=== PATIENT | male | born 1980 ===

== ENCOUNTER 2017-06-13 11:54 | Emergency (ER) | payer OTHER ==
[2017-06-13 12:12] VITALS: BMI 31.6
[2017-06-13 12:16] VITALS: BP 136/80; PULSE 75; RESP 20; TEMP 97.6; O2SAT 99
--- NOTE | 2017-06-13 12:49 | ED PDOC ---
Lower Extremity Pain/Injury Time Seen by Provider: 06/13/17 12:32 Chief Complaint (Nursing): Lower Extremity Problem/Injury Chief Complaint (Provider): Lower Extremity Problem/Injury History Per: Patient History/Exam Limitations: no limitations Onset/Duration Of Symptoms: Days (1 year ago), Persistent Current Symptoms Are (Timing): Still Present Additional Complaint(s): 36 year old male presents to the ED complaining of persistent intermittent right knee pain since 1 year ago after an injury due to playing soccer. 5 months ago he saw an orthopedic doctor at [facility]. X-rays were preformed and read as normal. The patient reports going to physical therapy for 5 weeks for the injury and he finished about 2 months ago. He states he continues to have pain in his knee especially when walking. Otherwise: (-) recent trauma, (- ) injury, (-) fever, (-) chills and (-) decreased ROM. PMD: Dr. Bethany Celis Past Medical History Reviewed: Historical Data, Nursing Documentation, Vital Signs Vital Signs: Last Vital Signs Temp 97.6 F 06/13/17 12:11 Pulse 75 06/13/17 12:11 Resp 20 06/13/17 12:11 BP 136/80 06/13/17 12:11 Pulse Ox 99 06/13/17 12:11 - Medical History PMH: No Chronic Diseases - Surgical History Surgical History: No Surg Hx - Family History Family History: States: Unknown Family Hx - Home Medications Home Medications: Ambulatory Orders Medication Instructions Recorded Naproxen 500 mg PO BID #30 tab 06/13/17 - Allergies Allergies/Adverse Reactions: Allergies Allergy/AdvReac Type Severity Reaction Status Date / Time No Known Allergies Allergy Verified 06/13/17 12:11 Review of Systems ROS Statement: Except As Marked, All Systems Reviewed And Found Negative Musculoskeletal: Positive for: Leg Pain (right knee pain) Physical Exam - Reviewed Nursing Documentation Reviewed: Yes Vital Signs Reviewed: Yes - Physical Exam Comments: GENERAL APPEARANCE: Patient is awake, alert, oriented x 3, in no acute distress. He ambulated upon arrival to the ED. SKIN: Warm, dry; (-) cyanosis. RIGHT KNEE: (-) Tenderness, (+) mild knee effusion, (-) decreased ROM, (+) distal pulses. NEURO AND PSYCH: Mental status as above. - ECG O2 Sat by Pulse Oximetry: 99 (RA) Pulse Ox Interpretation: Normal Medical Decision Making Medical Decision Making: Time: 12:32 --Patient was encouraged to ice and elevated. Antonio wrap was applied. Advised to follow up with orthopedic referral and to consider outpatient MRI. Advised to follow up with orthopedic physician in 1-2 days without fail. Advised to take medication as prescribed. Return to the emergency room at any time for any new or worsening symptoms. Patient states he fully agrees with and understands discharge instructions. States that he agrees with the plan and disposition. Verbalized and repeated discharge instructions and plan. I have given the patient opportunity to ask any additional questions. Scribe Attestation: Documented by Mona Paniagua acting as a scribe for Suzanna Bob PA-C MD Scribe Attestation: All medical record entries made by the Scribe were at my direction and personally dictated by me. I have reviewed the chart and agree that the record accurately reflects my personal performance of the history, physical exam, medical decision making, and the department course for this patient. I have also personally directed, reviewed, and agree with the discharge instructions and disposition. Disposition - Clinical Impression Clinical Impression: Knee pain - Patient ED Disposition Is Patient to be Admitted: No Counseled Patient/Family Regarding: Studies Performed, Diagnosis, Need For Followup, Rx Given - Disposition Referrals: [facility] [Outside] [facility] [place] [Outside] Disposition: Routine/Home Disposition Time: 12:45 Condition: STABLE Additional Instructions: Thank you for letting us take care of you today. You were treated for chronic right knee pain. The emergency medical care you received today was directed at your acute symptoms. If you were prescribed any medication, please fill it and take as directed. It may take several days for your symptoms to resolve. Return to the Emergency Department if your symptoms worsen, do not improve, or if you have any other problems. Please contact your ortho doctor in 2 days for re-evaluation and follow up / or call one of the physicians/clinics you have been referred to that are listed on the Patient Visit Information form that is included in your discharge packet. Bring any paperwork you were given at discharge with you along with any medications you are taking to your follow up visit. Our treatment cannot replace ongoing medical care by a primary care provider (PCP) outside of the emergency department. Thank you for allowing the [facility] team to be part of your care today. 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
== END 2017-06-13 13:10 | disposition home or self-care (01) ==
LOC: H.ER 11:54
DX: M25.561 Pain in right knee (principal)

== ENCOUNTER 2018-06-23 06:29 | Day surgery (SDC) | payer SELFPAY ==
[2018-06-22 10:55] VITALS: BMI 30.9
[2018-06-23] MEDS ORDERED: Propofol 10 mg/ml Inj (20 ML) ONE (07:18)
[2018-06-23] MEDS ORDERED: Midazolam 2 MG/2 ML VIAL ONE (07:19)
[2018-06-23] MEDS ORDERED: Phenylephrine 10 mg/ml Inj ONE (07:24)
[2018-06-23] MEDS ORDERED: Lactated Ringer's 1,000 ML IV ONE (07:25)
[2018-06-23] MEDS ORDERED: EPINEPHrine 1 mg/ml (1:1000) Inj ONE (07:31)
[2018-06-23] MEDS ORDERED: Lidocaine 1% w Epi 1:100,000 Inj ONE (07:31)
[2018-06-23] MEDS ORDERED: Bupivacaine 0.5% Inj(30mL) ONE (07:31)
[2018-06-23] MEDS ORDERED: MethylPREDNISolone Depo 40 mg/ml Inj ONE (07:31)
[2018-06-23] MEDS ORDERED: Bacitracin Ointment 30 GM TUBE ONE (07:31)
[2018-06-23 07:58] LABS: BASO % 0.5 % (0.0-2.0); EOS # 0.1 K/uL (0.0-0.7); EOS % 1.4 % (0.0-4.0); HEMOGLOBIN 14.9 g/dL (12.0-18.0); LYMPH # 2.3 K/uL (1.0-4.3); LYMPH % 31.3 % (20.0-40.0); MEAN CORPUSCULAR HGB CONC 34.1 g/dL (33.0-37.0); MEAN PLATELET VOLUME 9.1 fl (7.2-11.7); MONO # 0.6 K/uL (0.0-0.8); MONO % 7.7 % (0.0-10.0); NEUT # 4.3 K/uL (1.8-7.0); NEUT % 59.1 % (50.0-75.0); NRBC % 0.2 % (0.0-0.0); RBC 4.8 Mil/uL (4.40-5.90); RED CELL DISTRIBUTION WIDTH 13.1 % (11.5-14.5); WHITE BLOOD COUNT 7.3 K/uL (4.8-10.8)
[2018-06-23] MEDS ORDERED: Dexamethasone 4 mg/1 ml ONE (08:16)
--- NOTE | 2018-06-23 09:04 | PCM.SURG1 ---
Surgeon's Initial Post Op Note - Surgeon's Notes Surgeon: Mayra Oglesby MD President & Ceo: Mendy Pete PA-C; Choco Weber DPM Pre-Operative Diagnosis: Right knee meniscus tear, effusion Operative Findings: see op report Post-Operative Diagnosis: same as pre-op dx Operation Performed: Rt knee arthroscopy, partial medial and lateral meniscectomy, synovectomy, chondroplasty Specimen/Specimens Removed: none Estimated Blood Loss: EBL {In ML}: 3 Date of Surgery/Procedure: 06/23/18 Time of Surgery/Procedure: 08:15
[2018-06-23] MEDS ORDERED: Oxycodone/Acetaminophen 5/325 mg Tab PO PRN (09:05)
[2018-06-23] MEDS ORDERED: Dexamethasone 4 mg/1 ml IVP PRN (09:11)
[2018-06-23] MEDS ORDERED: Lactated Ringer's 1,000 ML IV SCH (09:15)
[2018-06-23] MEDS: HYDROmorphone 0.5 mg/0.5 ml ISec IVP PRN ×2 (09:20→10:15)
[2018-06-23] MEDS ORDERED: Oxycodone/Acetaminophen 5/325 mg Tab PO ONE (15:15)
[2018-06-23 16:13] VITALS: RESP 18
[2018-06-23 16:16] VITALS: PULSE 95
[2018-06-23 16:18] VITALS: BP 123/78; TEMP 98.7; O2SAT 97
--- NOTE | 2018-06-23 19:57 | OP ---
PROCEDURE DATE: 06/23/2018 ATTENDING PHYSICIAN: Mayra Oglesby MD LEARNING DESIGN SPECIALIST: Mendy Pete PA-C PREOPERATIVE DIAGNOSES: 1. Right knee medial meniscal tear. 2. Synovitis. 3. Effusion. POSTOPERATIVE DIAGNOSES: 1. Right knee tear of the posterior horn and anterior horn of medial meniscus. 2. Tear of the body of the lateral meniscus. 3. 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 4. 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 5. Patellofemoral adhesions. PROCEDURES: 1. Right knee arthroscopy, partial medial and lateral meniscectomy. 2. Chondroplasty of patella, trochlea, medial femoral condyle. 3. Major synovectomy of medial, lateral, and patellofemoral compartment. 4. Anterior lysis of adhesions. 5. Injection of a large joint. ANESTHESIA TYPE: General. EBL: 5 mL. SPECIMENS: None. DRAINS: None. CLOSURE: Primary. FLUIDS: See anesthesia sheet. COMPLICATIONS: None. INDICATIONS: After failing a course of non-operative therapy, the patient elected to undergo the above procedure. In the office, the risks and possible complications of knee arthroscopy were discussed in detail with the patient. These risks include but are not limited to continued pain, lack of motion, infection, vascular injury, DVT / PE, nerve injury including peroneal nerve dysfunction, reflex sympathetic dystrophy, compartment syndrome, unforeseen medical and/or anesthesia complications, limb loss, and even . The patient expressed an understanding of the risks and possible benefits of the procedure, and is also aware of the alternatives to surgery. An informed consent was obtained, and was checked immediately pre-op. PROCEDURE: The patient was correctly identified in the holding area and the right knee was marked with the surgeons initials. The patient was transported to the operating room and placed in the supine position. The right knee was marked, general anesthesia was obtained, preoperative exam revealed effusion of trace, range of motion is from 0 to 120, stable to varus and valgus stress. The lower extremity was prepped and draped in the standard fashion, and the thigh was placed in an arthroscopic leg poole. A well-padded tourniquet was applied to the patient's thigh. Time out was completed confirming the correct operative site. Esmarch was used to exsanguinate the leg and tourniquet was inflated to 300 mmHg. A standard anterolateral viewing portals were made with a #11 blade after subdermal 1% Lidocaine with Epinephrine injection. The knee was distended with normal saline and epinephrine in a 1:1,000,000 mixture, at an initial pressure of 35 mmHg. The arthroscope was inserted from the anterolateral portal and moved into the medial compartment. Next, the anteromedial working portal was made with spinal needle localization. The arthroscopic probe was inserted, and all compartments of the knee were sequentially visualized. FINDINGS: Arthroscopic examination of the knee revealed: 1. Tear of the posterior horn and anterior horn of medial meniscus. 2. Tear of the body of lateral meniscus. 3. 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 4. Grade II chondromalacia of the patella and the trochlea. 5. Patellofemoral adhesions. The motorized shaver was used to perform a synovectomy of the medial, lateral, and patellofemoral compartments. The hypertrophic synovium was resected with minimal bleeding. No synovial incarceration was noted after synovectomy when the knee was put through a full passive range of motion. Partial medial meniscectomy was performed with a combination of hand instruments and a motorized shaver. The meniscus was debrided to a smooth, stable border with an excursion of less than 3 mm. Partial lateral meniscectomy was performed with a combination of hand instruments and a motorized shaver. The meniscus was debrided to a smooth, stable border with an excursion of less than 5 mm. The motorized shaver was used to mechanically debride the loose, fibrillated and fragmented chondral edges of the medial femoral condyle, patella and trochlea to a stable border. Extreme care was taken to not disrupt the adjacent chondral surface. The edges of injured chondral area were probed to ensure stability after the shaver was withdrawn from the knee. Due to injuries to the patellofemoral region resulting in organized scar and suprapatellar adhesions, a decision was made to perform and anterior interval release to decrease the patellofemoral joint reaction force and relieve pressures over the patella and trochlea. The synovectomy was carried over to the suprapatellar pouch and an anterior interval release was performed over the anterior compartment and the suprapatellar pouch with the motorized shaver. The anterior fat pad was released and debulked during this procedure. The inflow was shut off and the area checked for hemostasis. Small bleeders were coagulated with the radiofrequency device. Finally, 1 cc of 40 mg Depo-Medrol mixed with 9 cc of 0.25% Marcaine was injected within the knee joint. Postoperatively, the patient will be weight bearing as tolerated and will utilize my standard post arthroscopy rehab protocol. The patient will be started on straight leg raising and quadriceps setting exercises in the recovery room and will progress to prone hangs as well as prone knee flexion exercises using an active assisted construct. During this procedure, I was assisted by Mendy Pete PA-C, who assisted in positioning the patient on the operating room table as well as transferring the patient from the operating room table to the recovery room stretcher. In addition, Mendy Pete PA-C assisted me during the actual operative procedure by positioning the patient's extremity to allow for easier arthroscopic access to all areas of the joint. The presence of Mendy Pete PA-C, as my operative starch treating assistant was medically necessary to ensure the utmost safety of the patient in the pre, intra-, and post-operative periods. Mayra Oglesby MD
== END 2018-06-23 16:55 | disposition home or self-care (01) ==
LOC: H.OPSURG 06:29
PROVIDERS: ATTEND Orthopaedic Surgery
DX: M23.241 Derangement of anterior horn of lateral meniscus due to old tear or injury, right knee (principal); M67.861 Other specified disorders of synovium, right knee; S83.241A Other tear of medial meniscus, current injury, right knee, initial encounter; X58.XXXA Exposure to other specified factors, initial encounter
CPT/HCPCS: 29880; 36415; 85025; 97116; 97161; G8978; G8979; G8980; J0171; J0690; J1030; J1100; J1170; J1885; J2001; J2250; J2370; J2405; J2704; J3010; J7030; J7120